=== PATIENT | female | born 1980 | race Caucasian/White ===

== ENCOUNTER 2019-03-11 16:35 | Inpatient (IN) ==
[2019-03-11] MEDS ORDERED: *HR* LORazepam 1 MG TABLET PO ONE (17:54)
[2019-03-11] MEDS ORDERED: Ibuprofen 600 MG TABLET PO STA (18:12)
[2019-03-11 18:19] LABS: Basophils # 0.1 K/mcL (0.0-0.2); Basophils % 0.8 %; Eosinophils # 0.3 K/mcL (0.0-0.6); Hematocrit 40.2 % (35.3-44.9); Hemoglobin 13.2 g/dL (11.5-15.4); Immature Granulocytes % 0.6 % (0-4); Lymphocytes # 2.3 K/mcL (0.6-4.6); Mean Corpuscular HGB Conc 32.8 g/dL (31.6-35.5); Mean Corpuscular Hemoglobin 29.7 pg (28.0-33.3); Mean Corpuscular Volume 90.3 fL (83.0-100.0); Mean Platelet Volume 10.5 fL (9.4-12.4); Monocytes # 0.4 K/mcL (0.0-1.3); Monocytes % 4.1 %; Neutrophils # 5.9 K/mcL (1.6-8.9); Platelet Count 318 K/mcL (140-400); Red Blood Count 4.45 M/mcL (3.82-4.97); Red Cell Distribution Width 13.2 % (11.5-14.5); Segmented Neutrophils % 65.5 %
[2019-03-11 18:36] LABS: Bilirubin,Urine Negative (Negative); Blood,Urine Negative (Negative); Clarity,Urine Cloudy (Clear); Color,Urine Yellow (Yellow); Glucose,Urine (UA) Normal (Normal); Ketones,Urine Negative (Negative); Leukocyte Esterase,Urine Trace (Negative); Nitrite,Urine Negative (Negative); PH,Urine 5.5 pH Units (5.0-8.0); Protein,Urine Negative (Neg-Trace); Specific Gravity,Urine 1.015 (1.010-1.025); Urobilinogen,Urine Normal (Normal)
[2019-03-11 18:37] LABS: Bacteria,Urine Moderate per hpf (None-Few); Hyaline Casts,Urine None Seen per lpf (None-Few); RBC,Urine 15-30 per hpf (0-3); Squamous Epithelial Cell,Urine Many per lpf (None-Few)
[2019-03-11 18:41] LABS: Acetaminophen < 10 mcg/mL (10-20); Alanine Aminotransferase 49 Units/L (7-52); Albumin 4.7 g/dL (3.5-5.7); Albumin/Globulin Ratio 1.8 (1.1-2.2); Alkaline Phosphatase 61 Units/L (34-104); Aspartate Amino Transferase 24 Units/L (13-39); BUN/Creatinine Ratio 14 (6-26); Bilirubin,Direct 0.1 mg/dL (0.0-0.2); Bilirubin,Indirect 0.5 mg/dL (0.0-1.2); Bilirubin,Total 0.6 mg/dL (0.3-1.0); Blood Urea Nitrogen 13 mg/dL (6-20); Calcium 9.6 mg/dL (8.6-10.3); Carbon Dioxide 24 mEq/L (23-29); Chloride 104 mEq/L (98-107); Ethanol < 10 mg/dL (Less than 10); Globulin 2.6 g/dL (2.4-3.5); Glucose 200 mg/dL (70-105); Osmolality,Calculated 290 (280-300); Salicylate < 2.5 mg/dL (15.0-30.0); Sodium 137 mEq/L (136-145); Total Protein 7.3 g/dL (6.4-8.9); eGFR For African Americans > 60 (> 60); eGFR For Non-African Americans > 60 (> 60)
[2019-03-11] MEDS ORDERED: cephALEXin 500 MG CAPSULE PO ONE (18:53)
[2019-03-11 18:54] LABS: Amphetamine Screen,Urine Negative ng/mL (Cutoff=1000); Barbiturate Screen,Urine Negative ng/mL (Cutoff=200); Benzodiazepines Screen,Urine Positive ng/mL (Cutoff=200); Cannabinoid Screen,Urine Positive ng/mL (Cutoff = 50); Cocaine Screen,Urine Negative ng/mL (Cutoff= 300); Opiate Screen,Urine Negative ng/mL (Cutoff=300); Phencyclidine Screen,Urine Negative ng/mL (Cutoff=25)
[2019-03-11] MEDS ORDERED: Haloperidol Lactate 5 MG/ML VIAL IM PRN (19:55)
[2019-03-11] MEDS ORDERED: Mag Hydrox/Al Hydrox/Simeth 30 ML UDC PO PRN (19:55)
[2019-03-11] MEDS ORDERED: MOM Conc 10 ML UD.LIQ PO PRN (19:55)
[2019-03-11] MEDS: Acetaminophen 325 MG TABLET PO PRN (22:05)
[2019-03-11] MEDS: hydrOXYzine pamoate 25 MG CAPSULE PO PRN (22:36)
[2019-03-11] MEDS: traZODone 50 MG TABLET PO PRN (22:36)
[2019-03-12] MEDS: Acetaminophen 325 MG TABLET PO PRN ×3 (04:28→20:11)
[2019-03-12] MEDS: Nicotine 14 MG PATCH.TD24 TD SCH (08:37)
[2019-03-12] MEDS: hydrOXYzine pamoate 25 MG CAPSULE PO PRN (12:23)
[2019-03-12] MEDS: FLUoxetine 20 MG CAPSULE PO SCH (17:15)
[2019-03-12] MEDS: BuPROPion XL (24 HR) 150 MG TABLET PO SCH (17:15)
[2019-03-12] MEDS ORDERED: Lithium Carbonate 300 MG CAPSULE PO SCH (21:00)
[2019-03-13] MEDS: hydrOXYzine pamoate 25 MG CAPSULE PO PRN (00:23)
[2019-03-13] MEDS: traZODone 50 MG TABLET PO PRN (00:23)
[2019-03-13] MEDS ORDERED: Metoprolol XL (24 HR) Succ 50 MG TAB.ER.24H PO SCH ×2 (09:00)
[2019-03-13] MEDS: FLUoxetine 20 MG CAPSULE PO SCH (11:31)
[2019-03-13] MEDS: Nicotine 14 MG PATCH.TD24 TD SCH (11:41)
[2019-03-13] MEDS: BuPROPion XL (24 HR) 150 MG TABLET PO SCH (11:42)
[2019-03-13] MEDS: Acetaminophen 325 MG TABLET PO PRN (12:41)
[2019-03-13 12:46] VITALS: BP 116/82
== END 2019-03-13 14:00 | disposition home or self-care (01) | DRG 751 ==
LOC: EMEROOARM 16:35 → 1ANU 19:54
PROVIDERS: ADMIT Psychiatry & Neurology Psychiatry; ATTEND Psychiatry & Neurology Psychiatry